=== PATIENT | female | born 1975 | race Caucasian/White ===

== ENCOUNTER 2017-01-04 10:06 | Day surgery (SDC) | payer OTHER ==
[~2017-01-04 10:06] MED LIST: ALDACTONE50 M1 PO; BENZOYL PEROXIDE TP; CLINDAMYCIN TP; FLAGYL500 MG PO; LEVAQUIN; LEVAQUIN500 MG PO; PERCOCET 5MG/AP1 TA1 PO; SPIRONOLACTONE; SPIRONOLACTONE100 MG PO; TOPICAL; TYLENOL650 MG PO; ZOFRAN4 MG PO; ZYRTEC10 M7 PO
== END 2017-01-04 17:45 ==
LOC: SRG 10:06 → SHSC 10:09 → ORE 12:05 → PACU 14:38
PROC: 0MUP47Z Supplement Left Knee Bursa and Ligament with Autologous Tissue Substitute, Percutaneous Endoscopic Approach (ICD-10-PCS; principal; 2017-01-04)
DX: S83.512D Sprain of anterior cruciate ligament of left knee, subsequent encounter (principal); S83.412D Sprain of medial collateral ligament of left knee, subsequent encounter; M22.42 Chondromalacia patellae, left knee; E66.9 Obesity, unspecified; Z68.30 Body mass index [BMI] 30.0-30.9, adult; Z98.890 Other specified postprocedural states; Y93.23 Activity, snow (alpine) (downhill) skiing, snowboarding, sledding, tobogganing and snow tubing
CPT/HCPCS: C1713; J0690